=== PATIENT | female | born 1950 | race African-American/Black ===

== ENCOUNTER 2017-12-19 03:02 | Emergency (ER) | payer MEDICARE, MEDICAID ==
[2017-12-19] MEDS: FAMOTIDINE 20 MG TAB PO (04:30)
[2017-12-19] MEDS: NAPROXEN 500 MG TAB PO (04:30)
[2017-12-19] MEDS: HYDROCODONE/APAP (5/325) TAB PO (06:11)
[2017-12-19] MEDS: DEXAMETHASONE 10 MG/ML 1 ML INJ IM (06:11)
== END 2017-12-19 06:21 | disposition home or self-care (01) ==
LOC: FTE 03:02
DX: M15.0 Primary generalized (osteo)arthritis (principal); E11.9 Type 2 diabetes mellitus without complications; E03.9 Hypothyroidism, unspecified; I10 Essential (primary) hypertension
CPT/HCPCS: 29125; 72040; 73110-RT; 96372; 99284-25